=== PATIENT | male | born 1970 | race Caucasian/White ===

== ENCOUNTER 2019-11-09 22:29 | Emergency (ER) | payer MEDICAID ==
[~2019-11-09] VITALS: Ht 175.3 cm; Wt 83.9 kg
[2019-11-09 22:50] VITALS: Ht 175.3 cm; Wt 83.9 kg
[2019-11-10 03:39] VITALS: BP 118/82
== END 2019-11-10 03:39 | disposition home or self-care (01) ==
LOC: ED 22:29
DX: S39.012A Strain of muscle, fascia and tendon of lower back, initial encounter (principal); M51.9 Unspecified thoracic, thoracolumbar and lumbosacral intervertebral disc disorder; W18.30XA Fall on same level, unspecified, initial encounter; Y93.89 Activity, other specified; Y92.89 Other specified places as the place of occurrence of the external cause; Y99.8 Other external cause status
CPT/HCPCS: J1885; J2270; Q0162

== ENCOUNTER 2020-01-17 19:59 | Emergency (ER) | payer MEDICAID ==
[~2020-01-17] VITALS: Ht 175.3 cm; Wt 80.7 kg
[2020-01-17 20:12] VITALS: Ht 175.3 cm; Wt 80.7 kg
[2020-01-17 21:14] LABS: CALCIUM 8.7 mg/dL (8.5-10.1); CARBON DIOXIDE 27.9 mmol/L (21-32); CHLORIDE SERUM 104 mmol/L (98-107); GFR1 > 60 mL/min; GLUCOSE SERUM 122 mg/dL (74-106); POTASSIUM SERUM 3.6 mmol/L (3.5-5.1); SODIUM SERUM 140 mmol/L (136-145)
[2020-01-17 21:19] LABS: ALBUMIN 3.9 g/dL (3.4-5.0); ALKALINE PHOSPHATASE 61 U/L (46-116); ALT/SGPT 40 U/L (16-63); AST/SGOT 32 U/L (15-37); BILIRUBIN TOTAL 0.3 mg/dL (0.20-1.00)
[2020-01-17 21:44] LABS: BASOPHIL % 0.6 % (0-2); PLATELET COUNT 258 x10^3mcL (130-400)
[2020-01-17 21:45] LABS: RED CELL DISTRIBUTION WIDTH 14.8 % (11.5-14.5)
[2020-01-17 22:15] LABS: AMPHETAMINE QUAL UR POSITIVE (See below)
[2020-01-17 23:29] VITALS: BP 130/88
== END 2020-01-17 23:29 | disposition home or self-care (01) ==
LOC: ED 19:59
PROVIDERS: Emergency Medicine
DX: R07.89 Other chest pain (principal); F19.10 Other psychoactive substance abuse, uncomplicated
CPT/HCPCS: 36415; 83880; Q0092